=== PATIENT | male | born 1955 | race Caucasian/White ===

== ENCOUNTER 2019-02-19 15:27 | Emergency (ER) | payer OTHER ==
--- OUTSIDE RECORDS SUMMARY | 2019-02-19 15:29 | XMS REPORT | Clinical Summary ---
:1955 Author Organization [facility] Address [address] [facility] [place] [address] Care Team Providers Name Role Phone Aaliyah Primary Care Provider Allergies No Known Allergies Medications Medication Sig Dispensed Refills Start Date End Date Status lisinopril Take 40 mg by mouth 0 Active (PRINIVIL,ZESTRIL) 2 (two) times daily. 40 MG tablet metFORMIN Take 750 mg by mouth 0 Active (GLUCOPHAGE) 500 MG 2 (two) times daily tablet with breakfast and dinner. liraglutide 0.6 Inject 1.2 mg 0 Active mg/0.1 mL (18 mg/3 subcutaneously mL) PnIj daily. canagliflozin Take 300 mg by mouth 0 Active (INVOKANA) 300 mg daily. tablet predniSONE Take 10 mg by mouth 0 Active (DELTASONE) 10 MG 3 (three) times tablet daily. budesonide (UCERIS) Take 9 mg by mouth 0 Active 9 mg TaDE daily. mesalamine (LIALDA) Take 2.4 mg by mouth 0 Active 1.2 gram EC tablet daily with breakfast. Active Problems Problem Noted Date ICH (intracerebral hemorrhage) 09/19/2016 Social History Tobacco Use Types Packs/Day Years Used Date Never Smoker Sex Assigned at Date Recorded Not on file Job Start Date Occupation Industry Not on file Not on file Not on file Travel History Travel Start Travel End No recent travel history available. Last Filed Vital Signs Not on file Plan of Treatment Not on file Results Not on fileafter 02/18/2018 Insurance Payer Benefit Plan / Subscriber ID Type Phone Address Group BLUE CROSS/BLUE BCBS PPO POS EPO xxxxxxxxxxxx PPO [phone] [address] [place] [address] Advance Directives For more information, please contact:[address] [phone] Code Status Date Activated Date Inactivated Comments Full Code 09/19/2016 4:51 AM 09/20/2016 3:21 PM This code status was determined by: Patient
[2019-02-19] MEDS ORDERED: MECLIZINE HCL 12.5 MG TAB ONE (16:03)
[2019-02-19] MEDS ORDERED: DIAZEPAM 10 MG/2 ML INJ SYRINGE ONE (16:15)
[2019-02-19 16:20] LABS: Absolute Lymphocytes (CBC) 1.7 K/uL (0.7-4.9); Absolute Monocytes 0.4 K/uL (0.1-1.3); Absolute Neutrophil 3.7 K/uL (1.8-8.0); Basophils % 0.8 % (0-1.3); Eosinophils % 4.3 % (0-4.4); Hematocrit 47.5 % (39.6-49.0); Lymphocytes % 27.4 % (15.3-44.8); MPV 8.3 fL (7.6-11.3); Monocytes % 7.1 % (3.3-12.3)
--- NOTE | 2019-02-19 16:21 | RAD REPORT ---
EXAM DESCRIPTION: CT - Head Brain Wo Cont - 02/19/2019 4:11 pm CLINICAL HISTORY: Weakness, dizziness, syncope COMPARISON: September 2016. TECHNIQUE: Axial 5 mm thick images of the head were obtained without IV contrast. All CT scans are performed using dose optimization technique as appropriate and may include automated exposure control or mA/KV adjustment according to patient size. FINDINGS: No intracranial hemorrhage, mass, edema or shift of mid-line structures. No acute cortical based infarction. No cortical edema or sulcal effacement seen. Atrophy and chronic ischemic changes are present. Ventricles are borderline for being out of proportion given the amount of volume loss. V entricular pattern is similar to the examination of September 2016 Mastoid air cells and visualized portions of the paranasal sinuses are clear. No acute bony findings. IMPRESSION: No hemorrhage, mass or other acute intracranial finding identifiable. No suspicious change from the 2016 study. Ventricles are borderline as being out of proportion to the amount of volume loss. Although the patte rn is stable, correlation can be made with any findings of normal pressure hydrocephalus.
--- NOTE | 2019-02-19 17:36 | ER ---
Nurse's Notes [facility] Name: Curt Read Jr Age: 63 yrs Sex: Male : 1955 Arrival Date: 02/19/2019 Time: 15:30 Bed 27 Private MD: Robert Pastrana Diagnosis: Vertigo Presentation: 02/19 15:33 Presenting complaint: Patient states: He was dizzy when he got up and then it resolved aj1 so he went to work, he got up to get some water and started feeling dizzy again and could not stand up, he was told he needed to go see his doctor so he called Dr. Pastrana's office and they advised him to come to the emergency room. Denies any weakness, denies trouble speaking. States "Its just my balance. This happened a year ago but it went away" Denies pain, denies SOB. Transition of care: patient was not received from another setting of care. Onset of symptoms was February 19, 2019 at 04:00. Risk Assessment: Do you want to hurt yourself or someone else? Patient reports no desire to harm self or others. Initial Sepsis Screen: Does the patient meet any 2 criteria? Yes Does the patient have a suspected source of infection? No. Patient's initial sepsis screen is negative. Care prior to arrival: None. 15:33 Method Of Arrival: Wheelchair aj1 15:33 Acuity: ASHLEY 3 aj1 16:13 No acute neurological deficit is noted. Pre-hospital glucose is not applicable to this ca1 patient. Triage Assessment: 15:37 The onset of the patients symptoms was more than six hours ago. The onset of the aj1 patients symptoms was February 19, 2019 at 04:00. General: Appears in no apparent distress. comfortable, Behavior is calm, cooperative, appropriate for age. Pain: Denies pain. Neuro: Level of Consciousness is awake, alert, obeys commands, Oriented to person, place, Moves all extremities. Full function Speech is normal, Facial symmetry appears normal, Reports dizziness. Cardiovascular: Patient's skin is warm and dry. Respiratory: Airway is patent Respiratory effort is even, unlabored, Respiratory pattern is regular, symmetrical. Stroke Activation: Physician: Stroke Attending; Name: ; Notified At: ; Arrived At: Physician: Chief Stroke Resident; Name: ; Notified At: ; Arrived At: Physician: Stroke Resident; Name: ; Notified At: ; Arrived At: Physician: ED Attending; Name: ; Notified At: ; Arrived At: Physician: ED Resident; Name: ; Notified At: ; Arrived At: 16:13 N/A ca1 Historical: - Allergies: 15:37 No Known Allergies; aj1 - PMHx: 15:37 Diabetes - NIDDM; hypercholesterol; Hypertension; ulcerative colitis; aj1 - Immunization history:: Flu vaccine is up to date. - Social history:: Smoking status: Patient/guardian denies using tobacco. - Ebola Screening: : Patient denies travel to an Ebola-affected area in the 21 days before illness onset. Screenin:50 Abuse screen: Denies threats or abuse. Denies injuries from another. Nutritional ca1 screening: No deficits noted. Tuberculosis screening: No symptoms or risk factors identified. Fall Risk IV access (20 points). Gait- Impaired (20 pts.). Assessment: 15:46 VAN Scoring: Arm Drift: Patients demonstrates NO arm weakness. Patient is VAN Negative. ca1 Visual Disturbance: No visual disturbance noted. Aphasia: No aphasia noted. Neglect: No neglect noted. General: Appears in no apparent distress. comfortable, Behavior is calm, cooperative, appropriate for age. 15:50 Pain: Denies pain. Neuro: Level of Consciousness is awake, alert, obeys commands, ca1 Oriented to person, place, time, situation, Regional Controller are equal bilaterally Moves all extremities. Gait is unsteady, Speech is normal, Facial symmetry appears normal, Reports dizziness, since this morning. Cardiovascular: Heart tones S1 S2 present Capillary refill < 3 seconds Patient's skin is warm and dry. Respiratory: Airway is patent Respiratory effort is even, unlabored, Respiratory pattern is regular, symmetrical, Breath sounds are clear bilaterally. GI: Abdomen is round non-distended, Bowel sounds present X 4 quads. Abd is soft and non tender X 4 quads. : No deficits noted. No signs and/or symptoms were reported regarding the genitourinary system. EENT: No deficits noted. No signs and/or symptoms were reported regarding the EENT system. Derm: Skin is intact, is healthy with good turgor, Skin is pink, warm \\T\\ dry. Musculoskeletal: Circulation, motion, and sensation intact. Capillary refill < 3 seconds, Range of motion: intact in all extremities. 16:02 Patient has been NPO before screening. The patient is alert, and able to follow ca1 commands. The patient does not exhibit slurred or garbled speech. The patient is not exhibiting difficulty speaking. The patient does not exhibit difficulty understanding words. The patient is able to swallow own secretions with no drooling or need for suction. Patient tolerated one teaspoon of water. No drooling, immediate coughing, gurgling, or clearing of the throat was noted. The patient tolerated 90mL of water. No drooling, immediate coughing, gurgling, or clearing of the throat was noted. The patient passed the bedside swallow screening. Oral medications may be given as ordered. Contact Physician for further diet orders. Provider notified of bedside swallow screening results: Manoj MINAYA. 16:44 Reassessment: Patient appears in no apparent distress at this time. Patient is alert, ca1 oriented x 3, equal unlabored respirations, skin warm/dry/pink. Vital Signs: 15:37 BP 148 / 91; Pulse 79; Resp 18; Temp 97.2; Pulse Ox 97% on R/A; Weight 98.88 kg (R); aj1 Height 5 ft. 8 in. (172.72 cm) (R); Pain 0/10; 16:44 BP 148 / 92; Pulse 82; Resp 17 S; Temp 97.5(O); Pulse Ox 99% on R/A; ca1 15:37 Body Mass Index 33.15 (98.88 kg, 172.72 cm) aj1 NIH Stroke Scale Scores: 15:46 NIHSS Score: 0 ca1 ED Course: 15:30 Patient arrived in ED. mr 15:31 Robert Pastrana MD is Private Physician. mr 15:36 Triage completed. aj1 15:37 Arm band placed on Patient placed in an exam room. aj1 15:43 Leonie Contreras RN is Primary Nurse. ca1 15:45 Manoj Trejo PA is PHCP. jr8 15:45 Luis Rodriguez MD is Attending Physician. jr8 15:50 Patient has correct armband on for positive identification. Placed in gown. Bed in low ca1 position. Call light in reach. Side rails up X2. residential monitor on. Pulse ox on. NIBP on. Warm blanket given. 16:04 Initial lab(s) drawn, by me, sent to lab. Inserted saline lock: 20 gauge in right lt1 antecubital area, using aseptic technique. 16:12 CT completed. Patient tolerated procedure well. Patient moved back from CT. ls3 16:12 CT Head Brain wo Cont In Process Unspecified. EDMS 16:12 EKG done, by information systems technician. reviewed by Manoj MINAYA. sm3 17:35 Robert Pastrana MD is Referral Physician. jr8 17:55 No provider procedures requiring assistance completed. IV discontinued, intact, ca1 bleeding controlled, Pressure dressing applied. Administered Medications: 15:50 Drug: Meclizine 25 mg Route: PO; ca1 17:50 Follow up: Response: No adverse reaction; 1755 ca1 16:04 Drug: Valium 2 mg Route: IVP; Site: right antecubital; ca1 17:50 Follow up: Response: No adverse reaction ca1 Point of Care Testing: Blood Glucose: 16:21 Blood Glucose: 169 mg/dL; ca1 Ranges: Intake: Outcome: 17:35 Discharge ordered by . jr8 17:55 Discharged to home via wheelchair, with son ca1 17:55 Condition: stable 17:55 Discharge instructions given to patient, Instructed on discharge instructions, follow up and referral plans. no driving heavy equipment, medication usage, Demonstrated understanding of instructions, follow-up care, medications, Prescriptions given X 2. 18:34 Patient left the ED. ca1 NIH Stroke Scale - NIH Stroke Score Date: 02/19/2019 Time: 15:46 Total Score = 0 1a. Level of Consciousness (LOC) - 0(Alert) 1b. Level of Consciousness (LOC) (Year \\T\\ Age) - 0(Both) 1c. LOC Commands (Open \\T\\ Closes Eyes/Filtration Operator) - 0(Both) 2. Best Gaze (Lateral Gaze Paresis) - 0(Normal) 3. Visual Field Loss - 0(No visual loss) 4. Facial Palsy - 0(Normal) 5a. Left Arm: Motor (10-second hold) - 0(No drift) 5b. Right Arm: Motor (10-second hold) - 0(No drift) 6a. Left Leg: Motor (5-second hold - always test supine) - 0(No drift) 6b. Right Leg: Motor (5-second hold - always test supine) - 0(No drift) 7. Limb Ataxia (finger/nose \\T\\ heel/fernandez - test with eyes open) - 0(Absent) 8. Sensory Loss (pinprick arms/legs/face) - 0(Normal) 9. Best Language: Aphasia (description/naming/reading) - 0(No aphasia) 10. Dysarthria (speech clarity - read or repeat words) - 0(Normal) 11. Extinction and Inattention (visual/tactile/auditory/spatial/personal) - 0(No abnormality) Initials: ca1 Signatures: Dispatcher [employer] EDMS Yumiko Vieira, RN RN aj1 Aby Yousif mr Maya, REI Aranda PA jr8 Arlette Roger sm3 Sheela Ewing ls3 Leonie Contreras RN RN ca1 Juana, Lissette lt1 Corrections: (The following items were deleted from the chart) 16:11 15:46 General: Appears in no apparent distress. comfortable, Behavior is calm, ca1 cooperative, appropriate for age, ca1 16:45 16:44 Reassessment: Patient appears in no apparent distress at this time. ca1 Patient is alert, oriented x 3, equal unlabored respirations, skin warm/dry/pink. Patient states feeling better. ca1
--- NOTE | 2019-02-19 17:36 | EDPHYS ---
Physician Documentation [facility] Name: Curt Read Jr Age: 63 yrs Sex: Male : 1955 Arrival Date: 02/19/2019 Time: 15:30 Bed 27 Private MD: Robert Pastrana ED Physician Luis Rodriguez HPI: 02/19 16:11 This 63 yrs old Male presents to ER via Wheelchair with complaints of Trouble jr8 Walking, Dizziness. 16:11 The patient presents with dizziness. Onset: The symptoms/episode began/occurred jr8 acutely, this morning, today. Context: occurred at home, occurred while the patient was at rest, just prior to the episode the patient experienced no apparent symptoms. Modifying factors: The symptoms are alleviated by holding head still, lying down, the symptoms are aggravated by standing up, changing position. Associated signs and symptoms: Pertinent positives: nausea. Severity of symptoms: At their worst the symptoms were moderate in the emergency department the symptoms have improved mildly. Patient's baseline: Neuro: alert and fully oriented, Motor: no deficits, Ambulation: walks without assistance, Speech: normal. The patient has experienced a previous episode, approximately 1 years ago, and the symptoms today are exactly the same. The patient has not recently seen a physician. Stated that after getting up this morning became dizzy with walking and movement but went away after about 1 hour. Went to work at that time and had been fine for a while until symptoms started again. Now has not resolved. Worse with movement and changing of position. Stated that he feels things are moving around him . Historical: - Allergies: 15:37 No Known Allergies; aj1 - PMHx: 15:37 Diabetes - NIDDM; hypercholesterol; Hypertension; ulcerative colitis; aj1 - Immunization history:: Flu vaccine is up to date. - Social history:: Smoking status: Patient/guardian denies using tobacco. - Ebola Screening: : Patient denies travel to an Ebola-affected area in the 21 days before illness onset. ROS: 16:11 Constitutional: Negative for fever, chills, and weight loss. jr8 16:11 Neuro: Positive for dizziness, gait disturbance, Negative for altered mental status, headache, hearing loss, loss of consciousness, numbness, seizure activity, speech changes, syncope, near syncope, tingling, tinnitus, tremor, visual changes, weakness. Exam: 16:11 Eyes: Pupils equal round and reactive to light, extra-ocular motions intact. Lids and jr8 lashes normal. Conjunctiva and sclera are non-icteric and not injected. Cornea within normal limits. Periorbital areas with no swelling, redness, or edema. ENT: Nares patent. No nasal discharge, no septal abnormalities noted. Tympanic membranes are normal and external auditory canals are clear. Oropharynx with no redness, swelling, or masses, exudates, or evidence of obstruction, uvula midline. Mucous membranes moist. Neck: Trachea midline, no thyromegaly or masses palpated, and no cervical lymphadenopathy. Supple, full range of motion without nuchal rigidity, or vertebral point tenderness. No Meningismus. Cardiovascular: Regular rate and rhythm with a normal S1 and S2. No gallops, murmurs, or rubs. Normal PMI, no JVD. No pulse deficits. Respiratory: Lungs have equal breath sounds bilaterally, clear to auscultation and percussion. No rales, rhonchi or wheezes noted. No increased work of breathing, no retractions or nasal flaring. Abdomen/GI: Soft, non-tender, with normal bowel sounds. No distension or tympany. No guarding or rebound. No evidence of tenderness throughout. Back: No spinal tenderness. No costovertebral tenderness. Full range of motion. Skin: Warm, dry with normal turgor. Normal color with no rashes, no lesions, and no evidence of cellulitis. MS/ Extremity: Pulses equal, no cyanosis. Neurovascular intact. Full, normal range of motion. Neuro: Awake and alert, GCS 15, oriented to person, place, time, and situation. Cranial nerves II-XII grossly intact. Motor strength 5/5 in all extremities. Sensory grossly intact. Cerebellar exam normal. Normal gait. 16:13 ECG was reviewed by the Attending Physician. jr8 Vital Signs: 15:37 BP 148 / 91; Pulse 79; Resp 18; Temp 97.2; Pulse Ox 97% on R/A; Weight 98.88 kg (R); aj1 Height 5 ft. 8 in. (172.72 cm) (R); Pain 0/10; 16:44 BP 148 / 92; Pulse 82; Resp 17 S; Temp 97.5(O); Pulse Ox 99% on R/A; ca1 15:37 Body Mass Index 33.15 (98.88 kg, 172.72 cm) aj1 NIH Stroke Scale Scores: 15:46 NIHSS Score: 0 ca1 MDM: 15:45 Patient medically screened. jr8 17:36 Data reviewed: vital signs, nurses notes, lab test result(s), radiologic studies, CT jr8 scan. Data interpreted: Pulse oximetry: on room air is 99 %. Interpretation: normal. Counseling: I had a detailed discussion with the patient and/or guardian regarding: the historical points, exam findings, and any diagnostic results supporting the discharge/admit diagnosis, lab results, radiology results, the need for outpatient follow up, a family practitioner, to return to the emergency department if symptoms worsen or persist or if there are any questions or concerns that arise at home. Response to treatment: the patient's symptoms have markedly improved after treatment. 02/19 15:46 Order name: CBC with Diff; Complete Time: 16:29 jr8 02/19 15:46 Order name: Basic Metabolic Panel; Complete Time: 16:42 jr8 02/19 15:46 Order name: CT Head Brain wo Cont; Complete Time: 16:29 jr8 02/19 16:22 Order name: Glucose, Ancillary Testing; Complete Time: 16:29 EDMS 02/19 15:46 Order name: IV; Complete Time: 16:05 jr8 02/19 15:46 Order name: EKG - Nurse/Tech; Complete Time: 16:05 jr8 02/19 15:46 Order name: EKG; Complete Time: 15:47 jr8 EC:13 Rate is 79 beats/min. Rhythm is regular, 1st Degree Block. QRS [place] is Normal. [place] jr8 interval is prolonged at 252 msec. QT interval is normal at 403 msec. No Q waves. T waves are Normal. No ST changes noted. Clinical impression: 1st degree heart block. Interpreted by me. Reviewed by me. Administered Medications: 15:50 Drug: Meclizine 25 mg Route: PO; ca1 17:50 Follow up: Response: No adverse reaction; 1755 ca1 16:04 Drug: Valium 2 mg Route: IVP; Site: right antecubital; ca1 17:50 Follow up: Response: No adverse reaction ca1 Point of Care Testing: Blood Glucose: 16:21 Blood Glucose: 169 mg/dL; ca1 Ranges: Critical Glucose Levels:Adult <50 mg/dl or >400 mg/dl <40 mg/dl or >180 mg/dl Disposition: 02/20 07:04 Co-signature as Attending Physician, Luis Rodriguez MD I agree with the assessment and raulito plan of care. Disposition: 02/19/19 17:35 Discharged to Home. Impression: Vertigo. - Condition is Stable. - Discharge Instructions: Benign Positional Vertigo, Vertigo. - Prescriptions for Meclizine 25 mg Oral Tablet - take 1 tablet by ORAL route every 8 hours As needed; 30 tablet. Valium 2 mg Oral Tablet - take 1 tablet by ORAL route every 8 hours As needed; 20 tablet. - Medication Reconciliation Form, Thank You Letter, Antibiotic Education, Prescription Opioid Use, Work release form form. - Follow up: Robert Pastrana MD; When: 2 - 3 days; Reason: Recheck today's complaints, Continuance of care, Re-evaluation by your physician. - Problem is new. - Symptoms have improved. NIH Stroke Scale - NIH Stroke Score Date: 02/19/2019 Time: 15:46 Total Score = 0 1a. Level of Consciousness (LOC) - 0(Alert) 1b. Level of Consciousness (LOC) (Year \T\ Age) - 0(Both) 1c. LOC Commands (Open \T\ Closes Eyes/Net Mobile Developer) - 0(Both) 2. Best Gaze (Lateral Gaze Paresis) - 0(Normal) 3. Visual Field Loss - 0(No visual loss) 4. Facial Palsy - 0(Normal) 5a. Left Arm: Motor (10-second hold) - 0(No drift) 5b. Right Arm: Motor (10-second hold) - 0(No drift) 6a. Left Leg: Motor (5-second hold - always test supine) - 0(No drift) 6b. Right Leg: Motor (5-second hold - always test supine) - 0(No drift) 7. Limb Ataxia (finger/nose \T\ heel/fernandez - test with eyes open) - 0(Absent) 8. Sensory Loss (pinprick arms/legs/face) - 0(Normal) 9. Best Language: Aphasia (description/naming/reading) - 0(No aphasia) 10. Dysarthria (speech clarity - read or repeat words) - 0(Normal) 11. Extinction and Inattention (visual/tactile/auditory/spatial/personal) - 0(No abnormality) Initials: ca1 Signatures: Dispatcher [employer] Yumiko Urbina RN RN aj1 Luis Rodriguez MD MD cha Roszak, Josh, PA PA jr8 Leonie Contreras, RN RN ca1 Corrections: (The following items were deleted from the chart) 02/19 18:34 17:35 02/19/2019 17:35 Discharged to Home. Impression: Vertigo. Condition is ca1 Stable. Forms are Medication Reconciliation Form, Thank You Letter, Antibiotic Education, Prescription Opioid Use. Follow up: Robert Pastrana; When: 2 - 3 days; Reason: Recheck today's complaints, Continuance of care, Re-evaluation by your physician. Problem is new. Symptoms have improved. jr8
--- NOTE | 2019-02-20 07:50 | EKG ---
Test Date: 2019-02-19 Test Time: 15:56:37 Quencher Operator: ARSEN MEASUREMENT RESULTS: Intervals: Rate: 79 MO: 252 QRSD: 90 QT: 352 QTc: 403 [place]: P: 21 MO: 252 QRS: 0 T: 34 INTERPRETIVE STATEMENTS: Sinus rhythm with 1st degree AV block Cannot rule out Anterior infarct, age undetermined Abnormal ECG Compared to ECG 09/18/2016 22:40:17 First degree AV block now present Sinus tachycardia no longer present Ventricular premature complex(es) no longer present Myocardial infarct finding still present Electronically Signed On 02-20-19 07:50:06 CDT by Cornelius Shane
== END 2019-02-19 18:34 | disposition home or self-care (01) ==
LOC: ER 15:27
DX: R42 Dizziness and giddiness (principal); E11.9 Type 2 diabetes mellitus without complications; E78.00 Pure hypercholesterolemia, unspecified; I10 Essential (primary) hypertension
CPT/HCPCS: 93005; 85025; 80048; 36415; 82962; 70450; 96374; 99285; J3360

== ENCOUNTER 2020-09-15 06:25 | Day surgery (SDC) | payer OTHER ==
[2020-09-11 10:09] LABS: Absolute Lymphocytes (CBC) 1.5 K/uL (0.7-4.9); Basophils % 0.5 % (0-1.3); Hematocrit 48.7 % (39.6-49.0); Lymphocytes % 24.3 % (15.3-44.8); MPV 8.8 fL (7.6-11.3); RBC Red Blood Cell Count 5.35 M/uL (4.33-5.43)
--- NOTE | 2020-09-11 10:13 | RAD REPORT ---
EXAM DESCRIPTION: RAD - Chest Pa And Lat (2 Views) - 09/11/2020 9:15 am CLINICAL HISTORY: PRE OPpending circumcision COMPARISON: December 2019 two view exam TECHNIQUE: Frontal and lateral views of the chest were obtained. FINDINGS: The lungs are clear. Interstitial pattern matches comparison. Heart size is normal and ce ntral vasculature is within normal limits. No pleural effusion or pneumothorax seen. No acute bony finding noted. No aortic abnormality. IMPRESSION: No acute cardiopulmonary process. No significant change from comparison study.
[2020-09-11 10:23] LABS: Potassium 4.3 mmol/L (3.5-5.1)
--- NOTE | 2020-09-11 13:37 | EKG ---
Test Date: 2020-09-11 Test Time: 08:54:52 Rod Cup Filler: SEA MEASUREMENT RESULTS: Intervals: Rate: 68 IA: 260 QRSD: 96 QT: 384 QTc: 408 [place]: P: 27 IA: 260 QRS: 2 T: 47 INTERPRETIVE STATEMENTS: Sinus rhythm with 1st degree AV block Otherwise normal ECG Compared to ECG 12/26/2019 12:15:37 No significant changes Electronically Signed On 09-11-20 13:36:53 VIGOUREUX PRINTER by Guillaume Medina
--- OUTSIDE RECORDS SUMMARY | 2020-09-15 06:28 | XMS REPORT | Clinical Summary ---
:1955 Author Organization [facility] Address [address] [place] [address] Care Team Providers Name Role Phone Aaliyah [...] Types Packs/Day Years Used Date Never Smoker Alcohol Use Drinks/Week oz/Week Comments Not Asked Sex Assigned at Date Recorded Not on file Last Filed Vital Signs Not on file Plan of Treatment Not on file Results Not on fileafter 09/15/2019 Insurance Payer Benefit Plan / Subscriber ID Effective Dates Phone Addre ss Type Group BLUE BCBS PPO POS [id number] 2016-Prese [phone] [id number] PPO CROSS/BLUE EPO CHOICE nt 2 [facility] [id number] Advance Directives For more information, please contact: [phone] Code Status Date Activated Date Inactivated Comments Full Code 09/19/2016 4:51 AM 09/20/2016 3:21 PM This code status was determined by: Patient
--- OUTSIDE RECORDS SUMMARY | 2020-09-15 06:28 | XMS REPORT ---
:1955 Author Organization [facility] Address [address] [place] [address] Care Team Providers Name Role Phone Denise Hogan Unavailable [phone] PROBLEMS Type Condition ICD9-CM [id number] Onset Condition SNOMED Code Notes Code Code Dates Status Problem BPH (benign N40.0 Active 385419261 prostatic hyperplasia) ALLERGIES No Known Allergies ENCOUNTERS from 1955 to 2020-07-03 Encounter Location Date Provider Diagnosis [facility] [address] [facility] Jun, Denise Hogan Phimosis N47.1 and Specialty/Urology [address] [facility] ( [place] [address] prostatic hyperplasia) N4 0.0 IMMUNIZATIONS No Information SOCIAL HISTORY Tobacco Use: Social History Observation Description Date Details (start date - stop date) Current Smoker Sex Assigned At : Social History Observation Description Sex Assigned At Unknown Alcohol Screen Question Answer Notes Did you have a drink containing alcohol in the past year? No Points 0 Interpretation Negative Tobacco Use/Smoking Question Answer Notes Additional Findings: Tobacco User Snuff user Are you a current smoker REASON FOR REFERRAL No Information VITAL SIGNS Height 68 in Jun, Weight 214 lbs Jun, Temperature 98.5 degrees Fahrenheit Jun, BMI 32.54 kg/m2 Jun, Oximetry 95 % Jun, Blood pressure systolic 159 mm Hg Jun, Blood pressure diastolic 86 mm Hg Jun, MEDICATIONS Medication SIG (Take, Route, Start Date End Date Status Frequency, Duration) Rosuvastatin Calcium 5 MG 1 capsule Orally Once a Active day Betamethasone Dipropionate 1 application Externally Jun, Jul, Active 0.05 % BID for 10 days Synjardy 5-500 MG 1 tablet with meals Act patti Orally Twice a day Losartan Potassium 50 MG 1 tablet Orally Once a Active day Carvedilol 6.25 MG 1 tablet with food Orally Active Twice a day Apriso 0.375 GM 4 capsules in the morning Active Orally Once a day Glimepiride 4 MG 1 tablet with breakfast Active or the first main meal of the day Orally Once a day PROCEDURES No Information RESULTS No Results REASON FOR VISIT Phimosis MEDICAL (GENERAL) HISTORY Type Description Date Surgical History hand 2014 Hospitalization History 05/18/2020 Goals Section No Information Health Concerns No Information MEDICAL EQUIPMENT No Information MENTAL STATUS No Information FUNCTIONAL STATUS No Information ASSESSMENTS Encounter Date Diagnosis Notes Jun, BPH (benign prostatic hyperplasia) (ICD- 10 - N40.0) Jun, Phimosis (ICD-10 - N47.1) PLAN OF TREATMENT Medication Medication Name Sig Start Date Stop Date Betamethasone Dipropionate 0.05 1 application Externally BID Jun, Jul, % for 10 days Treatment Notes Assessment Notes Clinical Notes Phimosis Trial of Bet dip cre am BID for 10 days to see if helps soften foreskinUrine reflex Schedule surgeryJul, 2020Continue better glucose control Treatment Notes Test Name Order Date URINALYSIS AUTO W/O SCOPE ([id number]) 2020-07-03 UMIC with Reflex to Urine Culture 2020-07-03 PVR 2020-07-03 Next Appt Details 4 Weeks Reason:surgery/post op Follow Up:4 Weekssurgery/post op Insurance Providers Payer Name Payer Address Payer Insured Patient Coverage Cover age Phone Name Relationship to Start Date End Date Insured MEDICARE Attn Part B [id number] [place],Wi self [employer] Claims [address] [place] [address] [employer] [address] [phone] [place]i self [place] [address] [phone]
--- OUTSIDE RECORDS SUMMARY | 2020-09-15 06:28 | XMS REPORT ---
:1955 Author Organization [facility] Address [address] [facility] [address] [place] [address] Care Team Providers Name Role Phone Matthew Enriquez Unavailable [phone] PROBLEMS Type Condition ICD9-CM [id number] Onset Condition SNOMED Code Notes Code Code Dates Status Problem BPH loc w urin N40.1 Active 724769399 obs/LUTS Problem Phimosis N47.1 Active [id number] Problem BPH (benign N40.0 Active 950801441 prostatic hyperplasia) Problem Posthitis N47.7 Active 35876842 ALLERGIES No Known Allergies ENCOUNTERS from 1955 to 2020-08-05 Encounter Location Date [facility] [address] [facility] Jul, Matthew Enriquez Phimosis N47.1 ; Specialty/Urology [address] [place] [address] [address] [address] [place] [address] BPH loc w urin obs/LUTS N40.1 IMMUNIZATIONS No Information SOCIAL HISTORY Tobacco Use: Social History Observation Description Date Details (start date - stop date) Current Smoker Sex Assigned At : Social History Observation Description Sex Assigned At Unknown Alcohol Screen Question Answer Notes Did you have a drink containing alcohol in the past year? No Points 0 Interpretation Negative Tobacco Use/Smoking Question Answer Notes Additional Findings: Tobacco User Chews tobacco Are you a current smoker REASON FOR REFERRAL No Information VITAL SIGNS Height 68 in Jul, Weight 218.2 lbs Jul, Temperature 97.7 degrees Fahrenheit Jul, BMI 33.17 kg/m2 Jul, Blood pressure systolic 167 mm Hg Jul, Blood pressure diastolic 94 mm Hg Jul, MEDICATIONS Medication SIG (Take, Route, Start Date End Date Status Frequency, Duration) Glimepiride 4 MG 1 tablet with breakfast or Active the first main meal of the day Orally Once a day Rosuvastatin Calcium 5 MG 1 capsule Orally Once a Active day Synjardy 5-500 MG 1 tablet with meals Orally Active Twice a day Apriso 0.375 GM 4 capsules in the morning Active Orally Once a day Carvedilol 6.25 MG 1 tablet with food Orally Active Twice a day Clotrimazole-Betamethasone 1 application Externally Jul, Sep, Active 1-0.05 % Twice a day for 42 days Losartan Potassium 50 MG 1 tablet Orally Once a day Active PROCEDURES No Information RESULTS No Results REASON FOR VISIT PHIMOSIS MEDICAL (GENERAL) HISTORY Type Description Date Medical History COLITIS Medical History DIABETES Medical History HYPERTENSION Medical History HIGH CHOLESTEROL Medical History SLEEP DISORDER Surgical History hand 2014 Hospitalization History 05/18/2020 Goals Section No Information Health Concerns No Information MEDICAL EQUIPMENT No Information MENTAL STATUS No Information FUNCTIONAL STATUS No Information ASSESSMENTS Encounter Date Diagnosis Notes Jul, Phimosis (ICD-10 - N47.1) Jul, BPH loc w urin obs/LUTS (ICD-10 - N40.1) Jul, Posthitis (ICD-10 - N47.7) PLAN OF TREATMENT Medication Medication Name Sig Start Date Stop Date Clotrimazole-Betamethasone 1 application Externally Twice JulSep, 1-0.05 % a day for 42 days Treatment Notes Test Name Order Date URINALYSIS AUTO W/O SCOPE ([id number]) 2020-08-05 Next Appt Details Provider Name:Matthew Mina 2020-09-08 07:30:00 AM, [address] [place] [address], [place], [address], Insurance Providers Payer Name Payer Address Payer Insured Patient Coverage Cover age Phone Name Relationship to Start Date End Date Insured [employer] [address] [phone] [place] [address] [phone] MEDICARE Attn Part B [id number] [place] self [employer] Claims [address] [facility] [address]
--- OUTSIDE RECORDS SUMMARY | 2020-09-15 06:28 | XMS REPORT | Continuity of Care Document ---
:1955 Author Organization [facility] t Address [address] [place] [address] 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 Social History Social Habit Start Date Stop Date Quantity Comments Source Sex Assigned At [facility] 2016[facility]09[facility] Smoking Status Start Date Stop Date Source Never smoker [facility] Medications Ordered Filled Start Stop Current Ordering Indication Dosage Frequency Signature Comments Components Source Medication Medication Date Date Medication? Clinician (SIG) Name Name lisinopril 2015-10 Yes 40mg Q.5D Take [address] (PRINIVIL,Z 2-13 by mouth 2 Edith kes - ESTRIL) 40 13:21: (two) Medica l MG tablet 15 times Center daily. metFORMIN 2015-10 Yes 750mg Take [address] [facility] (GLUCOPHAGE 2-13 mg by [facility] ) 500 MG 13:21: mouth 2 Medica l tablet 15 (two) Center times daily with breakfast and dinner. liraglutide 2015-10 Yes 1.2mg QD Inject 1.[address] [facility] 0.6 mg/0.1 2-13 mg [facility] - mL (18 mg/3 13:21: subcutaneo Medical mL) PnIj 15 usly Center daily. canaglifloz 2015-10 Yes 300mg QD Take [address] in 2-13 mg by [facility] - (INVOKANA) 13:21: mouth Medica l 300 mg 15 daily. Center tablet predniSONE 2015-10 Yes 10mg [id number] Take [address] (DELTASONE) 2-13 [id number] by mouth 3 [facility] - 10 MG 13:21: 3D (three) Medical tablet 15 times Center daily. budesonide 2015-10 Yes 9mg QD Take [address] (UCERIS) 9 2-13 by mouth [facility] - mg TaDE 13:21: daily. Medical 15 Center mesalamine 2015-10 Yes 2.4mg Take 2.[address] (LIALDA) 2-13 mg by [facility] - 1.2 gram EC 13:21: mouth Medic al tablet 15 daily with Center breakfast. Procedures This patient has no known procedures. Encounters Start End Encounter Admission Attending Care Care Encounter Source Date/Time Date/Time Type Type Clinicians Facility Department ID 2020-08-05 2020-08-05 Outpatient [facility] [id number] [facility] ent Clinics 2020-08-05 2020-08-05 Outpatient [facility] [id number] [facility] Clin[facility] 2020-07-02 2020-07-02 Outpatient [facility] [id number] [facility]00 [facility] ent [facility] Results This patient has no known results.
--- OUTSIDE RECORDS SUMMARY | 2020-09-15 06:29 | XMS REPORT ---
:1955 Author Organization [facility] Address [address] [place] [address] [address] [place] [address] Care Team Providers Name Role Phone Matthew Enriquez Unavailable [phone] PROBLEMS Type Condition ICD9-CM [id number] Onset Condition SNOMED Code Notes Code Code Dates Status Problem BPH loc w urin N40.1 Active 574031341 obs/LUTS Problem Phimosis N47.1 Active 001930091 Problem BPH (benign N40.0 Active 488429545 prostatic hyperplasia) Problem Posthitis N47.7 Active 40310588 ALLERGIES No Known Allergies ENCOUNTERS from 1955 to 2020-08-05 Encounter [facility] Date [facility] [address] Jul, Matthew Enriquez Specialty/[place] [address] IMMUNIZATIONS No Information SOCIAL HISTORY Tobacco Use: [...] REASON FOR REFERRAL No Information VITAL SIGNS No information MEDICATIONS Medication SIG (Take, Route, Start Date [...] Information RESULTS No Results REASON FOR VISIT No Information MEDICAL (GENERAL) HISTORY Type Description Date Medical History COLITIS Medical History DIABETES Medical History HYPERTENSION Medical History HIGH CHOLESTEROL Medical History SLEEP DISORDER Surgical History hand 2014 Hospitalization History 05/18/2020 Goals Section No Information Health Concerns No Information MEDICAL EQUIPMENT No Information MENTAL STATUS No Information FUNCTIONAL STATUS No Information ASSESSMENTS No Information PLAN OF TREATMENT Medication Medication Name Sig Start Date Stop Date Clotrimazole-Betamethasone 1 application Externally Twice JulSep, 1-0.05 % a day for 42 days Next Appt Details Provider Name:Matthew Enriquez 2020-09-08 07:30:00 AM, [address] [place] [address], [place], [address], Insurance Providers Payer Name Payer Address Payer Insured Patient Coverage Cover age Phone Name Relationship to Start Date End Date Insured [employer] [address] [phone] Yulisa Villegas self [place] [address] [phone] MEDICARE Attn Part B [id number] [place]oro[place] self [employer] Claims [address] [facility] [address]
[2020-09-15] MEDS: NA CHLORIDE 0.9% 1,000 ML ONE (07:00)
[2020-09-15] MEDS ORDERED: CEFAZOLIN/SWI 2gm 2 GM/20 ML SYR ONE (07:06)
[2020-09-15] MEDS ORDERED: propofoL 200 MG/20 ML VIAL IV ONE (07:26)
[2020-09-15] MEDS ORDERED: FENTANYL CITR 100 MCG/2 ML ONE (07:26)
[2020-09-15] MEDS ORDERED: ROCURONIUM 50 MG/5 ML VIAL IV ONE (07:26)
[2020-09-15] MEDS ORDERED: LIDOCAINE 1% MPF 5 ML VIAL ONE (07:26)
[2020-09-15] MEDS ORDERED: BACITRACIN OINTMENT 15 GM TUBE TOP ONE (07:34)
[2020-09-15] MEDS ORDERED: BUPIVACAINE 0.25% PF 10 ML VIAL ONE (07:34)
[2020-09-15] MEDS ORDERED: LIDOCAINE 1% MPF 30 ML VIAL ONE (07:35)
[2020-09-15] MEDS ORDERED: EPHEDRINE SULF 50 MG/ML VIAL ONE (08:14)
[2020-09-15] MEDS ORDERED: NS 0.9% VIAL 10 ML ONE (08:14)
[2020-09-15] MEDS ORDERED: KETOROLAC 30 MG/ML INJ ONE (08:17)
[2020-09-15] MEDS ORDERED: ONDANSETRON 4 MG/2 ML VIAL ONE (08:17)
[2020-09-15] MEDS ORDERED: GLYCOPYRROLATE 0.2 MG/ML SYR ONE (08:27)
--- NOTE | 2020-09-15 10:44 | OP ---
Surgeon: KEVYN GRAY Preoperative Diagnoses: 1.Phimosis. 2.Posthitis. Postoperative Diagnoses: 1.Phimosis. 2.Posthitis. 3.Zoon balanitis of glans. Principal Procedures: 1.Sleeve circumcision. 2.Penile block. Indication For Procedure: Mr. Read presented to the Urology Clinic with recurrent episodes of phi mosis associated with evidence of balanoposthitis. We attempted to treat him with a steroid and anti fungal ointment without significant change. As a result, he elected to proceed with elective circumc ision. Procedure Note: The patient was consented in the preoperative holding area before being transferred to the operative suite where general anesthesia using an LMA was induced. He was given Ancef 2 g IV antimicrobial prophylaxis and pneumo boots were provided for DVT prophylaxis. He was supine on the o perating table, and his prepubic region was shaved and then he was prepped in standard fashion using Betadine. Because of the denseness of the phimosis, Q-tip swabs and Betadine were used to cleanse th e inside component of the foreskin next to the glans. A penile block was then performed using a 50:5 0 mixture of 0.25% Marcaine and 1% lidocaine. A total of approximately 30 mL of the 50:50 mixture wa s given in the infrapubic region and in the region of the neurovascular bundles bilaterally to comple te the penile block. Once this was done, a line was marked using a marking pen at the level of the c kush of the glans and then a dorsal slit was performed by using a straight clamp to crush the dorsal tissue in the anterior midline. This was then divided sharply using cut electrocautery, until I was able to retract the foreskin and expose the glans penis. I then marked the preputial margin that wa s approximately 1 to 1.5 cm in length from the red and circumferentially incised this using a 15-b lade. I then incised the previously marked shaft skin line and divided the intervening skin in the a nterior/dorsal midline before applying snaps to the 4 corners that had now been developed in order to use electrocautery to divide the dartos attachments to the foreskin from the shaft of the penis. On ce the entirety of the foreskin had been excised, it was sent for pathologic analysis. I then perfor med a careful search for bleeding and using Adson forceps, pinpoint fulguration of any and all bleedi ng vessels was performed using electrocautery. Once this was completed, irrigation was applied and a ny further bleeding was then pinpoint fulgurated. When the area was completely hemostatic, I then pe rformed quadrant sutures using 3-0 chromic dipped in bacitracin. Once this was done, the intervening tissue was sewn together using a running horizontal mattress of 3-0 chromic suture. In the end, the cosmetic result was excellent and a Gunnar and a Coban were applied after bacitracin was applied to t he incision line. Once the Coban was applied, bacitracin was applied to the glans penis, and the pat ient was awakened from general anesthesia. He was then transferred to a stretcher and then to the re covery room in good condition. Complications: None. Discharge Disposition: Because of some mild erythema in a circular region on the dorsal glans penis, I suspect underlying Zoon balanitis. As a result, I will recommend he continue to apply the nystati n and triamcinolone ointment once a day to the glans penis and the other time of the day apply Neospo rin/bacitracin. Follow up will be established in the Urology Clinic within the next 1 to 2 weeks. CASH/PUJA Voice ID: [id number] Report ID: [id number]
[2020-09-15 14:41] VITALS: BP 139/82; TEMP 97.4; O2SAT 100
== END 2020-09-15 10:25 | disposition home or self-care (01) ==
LOC: OR 06:25
PROVIDERS: ATTEND Urology
PROC: 0VTTXZZ Resection of Prepuce, External Approach (ICD-10-PCS; principal; 2020-09-15 07:30)
DX: N47.1 Phimosis (principal); N47.7 Other inflammatory diseases of prepuce; E11.9 Type 2 diabetes mellitus without complications; I10 Essential (primary) hypertension; K51.90 Ulcerative colitis, unspecified, without complications; Z20.828 Contact with and (suspected) exposure to other viral communicable diseases; G47.33 Obstructive sleep apnea (adult) (pediatric); Z79.84 Long term (current) use of oral hypoglycemic drugs; Z79.82 Long term (current) use of aspirin; N48.1 Balanitis
CPT/HCPCS: 36415; 71046; 80048; 82947; 85025; 85730; 88304; 93005; J0690; J2405; J2704; J3010; J7030; U0002

== ENCOUNTER 2021-02-06 05:45 | Emergency (ER) | payer OTHER ==
--- OUTSIDE RECORDS SUMMARY | 2021-02-06 05:49 | XMS REPORT | Continuity of Care Document ---
:1955 Author Organization [facility] t Address [address] [place] [address] Care Team Providers Name Role Phone Sharpless Primary Care Physician Only, Test Attending Clinician Unavailable Payers Payer Name Policy Type Policy Number Effective Date Expiration Date S ource Problems Condition Condition Condition Status Onset Resolution Last Treating Co mments Source Name Details Category Date Date Treatment Clinician Date ICH ICH Disease Active 2015-[address] [facility] (intracere (intracere 2-12 Edith kes - bral bral 00:00: Medical hemorrhage hemorrhage 00 Ce nter ) ) Allergies, Adverse Reactions, Alerts Allergy Allergy Status Severity Reaction(s) Onset Inactive Treating Comm ents Source Name Type Date Date Clinician No Known DA Active [facility] 3-30 Clear s 00:00: Wong 00 [facility] No Known DA Active [facility]ie 11-02 [place] [facility] Social History Social Habit Start Date Stop Date Quantity Comments Source Sex Assigned At MARIUSZ [facility] Alcohol intake 2016-09-19 2016-09-[address] [facility] Smoking Status Start Date Stop Date Source Never smoker [facility] Medications Ordered Filled Start Stop Current Ordering Indication Dosage Frequency Signature Comments Components Source Medication Medication Date Date Medication? Clinician (SIG) Name Name annaifloz 2015-10 Yes 300mg QD Take [address] in 2-13 mg by [facility] (INVOKANA) 13:21: mouth Medica l 300 mg 15 daily. Center tablet predniSONE 2015-10 Yes 10mg [id number] Take [address] [facility] (DELTASONE) 2-13 [id number] by mouth 3 [facility] - 10 MG [...] al tablet 15 daily with Center breakfast. lisinopril 2015-10 Yes 40mg Q.5D Take 40 [...] Medical mL) PnIj 15 usly Center daily. Procedures This patient has no known procedures. Encounters Start End Encounter Admission Attending Care Care Encounter Source Date/Time Date/Time Type Type Clinicians Facility Department ID 2021-01-15 2021-01-15 Laboratory Only, [facility] [id number] 15:17:53 15:32:53 Only Test [place] [id number] [facility] [id number] [place] [id number] 2020-10-19 2020-10-19 Outpatient [facility] [id number] [facility] 2020-09-30 2020-09-30 Outpatient [facility] [id number] [facility] 2020-09-21 2020-09-21 Outpatient [facility] [id number] [facility] 2020-08-05 2020-08-05 [facility] [id number] [facility] 2020-08-05 2020-08-05 Outpatient [facility] [id number] [facility] 2020-07-02 2020-07-02 Outpatient [facility] [id number] [facility] Results Test Description Test Time Test Comments Results Result Comments Source GLUBED 2021-01-25 12:17:00 Test Item Value Reference Range Interpretation Comme nts GLUBED (test code = GLUBED) 138 mg/dL 60-125 H [id number] 12:29:00 Test Item Value Reference Range Interpretation Comments GLUBED (test code = GLUBED) 164 mg/dL 60-125 H [id number] 05:22:00 Test Item Value Reference Range Interpretation Comments GLUBED (test code = GLUBED) 133 mg/dL 60-125 H [id number] 21:05:00 Test Item Value Reference Range Interpretation Comments GLUBED (test code = GLUBED) 173 mg/dL 60-125 H [id number] 17:43:00 Test Item Value Reference Range Interpretation Comments GLUBED (test code = GLUBED) 168 mg/dL 60-125 H [id number] 11:42:00 Test Item Value Reference Range Interpretation Comments GLUBED (test code = GLUBED) 290 mg/dL 60-125 H - XR SPINE 1 V SPEC [id number] 08:45:00 [facility] 1955 Sex: M Patient Name: ROHCELLE VILLEGAS JR Unit No: [id number] EXAMS: CPT CODE: [id number] XR SPINE 1 V SPEC LEVEL [id number] 1 LATERAL INTRAOPERATIVE VIEWS OF THE LUMBAR SPINE Image 1: Surgical markers are at the L4-L5 and S3 levels at 0845 Reported and signed by: Lawrence Briggs M.D. CC: Bandar Goetz MD Technologist: JULIEN MAURER (RT.R) Transcribed D/ (0845) LenkaJ [facility] NAME: ROCHELLE VILLEGAS [address] [facility] PHYS: Bandar Marcial : 1955 AGE: 65 SEX: M [place], [place] [address] LOC: Y.523 A PHONE #: [phone] EXAM DATE: 01/21/2021 STATUS: ADM IN FAX #: [phone] RAD #: D/C DT PAGE 1 Signed Report Patient Name: ROCHELLE VILLEGAS JR Unit No: [id number] EXAMS: CPT CODE: [id number] XR SPINE 1 V SPEC LEVEL [id number] <Continued> Orig Print D/T: S: 01/22/2021 (0848) [facility] NAME: ROCHELLE VILLEGAS JR [address] [facility] [address] PHYS: LANG GoetzBandar Renetta Dan : 1955 AGE: 65 SEX: M [place], [place] [address] LOC: Y.523 A PHONE #: [phone] EXAM DATE: 01/21/2021 ATUS: ADM IN FAX #: [phone] RAD #: D/C DT PAGE 2 Signed ReportBASIC METABOLIC PANEL 2021-01-22 06:48:00 Test Item Value Reference Range Interpretation Comments SODIUM (test code = 134 mmol/L 136-145 L NA) POTASSIUM (test code = 4.8 mmol/L 3.5-5.1 N K) CHLORIDE (test code = 98.0 mmol/L 98-107 N CL) CARBON DIOXIDE (test 23.0 mmol/L 21-32 N code = CO2) GLUCOSE (test code = 226 mg/dL 70-110 H GLU) BLOOD UREA NITROGEN 19 mg/dL 7-18 H (test code = BUN) GLOMERULAR FILTRATION 79.1 >60 Unit o f measure: RATE (test code = GFR) mL/mi n/1.73 [id number] Range:Healthy A dults >90 mL/min/1.73 m2 For Chronic Kidney Disease: St age II Mild Dec rease in GFR 6 0-90 Stage III Moderate Decrea se in GFR 30-59 Stage IV Se joaquina Decrease in GFR 15-29 Stage V Kidney Failur e <15 CREATININE (test code 0.95 mg/dL 0.55-1.30 N = CREAT) CALCIUM (test code = 9.1 mg/dL 8.2-10.1 N CA) CBC W/AUTO [id number] 05:50:00 Test Item Value Reference Range Interpretation Comments WHITE BLOOD CELL (test code = 12.8 K/mm3 5.7-10.5 H WBC) RED BLOOD CELL (test code = RBC) 4.77 M/mm3 4.2-5.4 N HEMOGLOBIN (test code = HGB) 14.5 g/dL 12-16 N HEMATOCRIT (test code = HCT) 43.8 % 37-47 N MEAN CELL VOLUME (test code = 92 fL 80-98 N MCV) MEAN CELL HGB (test code = MCH) 30.4 pg 27-34 N MEAN CELL HGB CONCENTRATION (test 33.1 g/dL 30.8-34.1 N code = MCHC) RED CELL DISTRIBUTION WIDTH (test 12.4 % 11-16 N code = RDW) PLT (test code = PLT) 208 K/mm3 130-400 N MEAN PLATELET VOLUME (test code = 10.5 fL 8.9-12.1 N MPV) NEUTROPHIL % (test code = NT%) 88.8 % 45-70 H LYMPHOCYTE % (test code = LY%) 5.9 % 20-40 L MONOCYTE % (test code = MO%) 4.7 % 3-10 N EOSINOPHIL % (test code = EO%) 0.0 % 1-5 L BASOPHIL % (test code = BA%) 0.2 % 0.0-1.1 N NEUTROPHIL # (test code = NT#) 11.34 K/mm3 2.00-7.50 H LYMPHOCYTE # (test code = LY#) 0.75 K/mm3 1.50-4.00 L MONOCYTE # (test code = MO#) 0.60 K/mm3 0.2-0.8 N EOSINOPHIL # (test code = EO#) 0.00 K/mm3 0.04-0.4 L BASOPHIL # (test code = BA#) 0.02 K/mm3 0.02-0.10 N MANUAL DIFF REQUIRED (test code = NO MANUAL DIFF MDIFF) NUCLEATED RED BLOOD CELL (test 0 % 0-0 N code = NRBC) [id number] 05:40:00 Test Item Value Reference Range Interpretation Comments GLUBED (test code = GLUBED) 208 mg/dL 60-125 H [id number] 22:30:00 Test Item Value Reference Range Interpretation Comments GLUBED (test code = GLUBED) 246 mg/dL 60-125 H PROTHROMBIN [id number] 13:12:00 Test Item Value Reference Range Interpretation Comments PROTHROMBIN TIME 11.5 secs 10.1-12.5 N PATIENT (test code = PTP) INTERNATIONAL NORMAL 1.01 <2.0 RECOMME NDED THERAPEUTIC RATIO (test code = RANGE FOR ORAL INR) ANTICOAGULANTTR EATMENT: CONDI TION INRProphylaxis of venous thrombos is in 2.0 - 3.0 high-risk medic al or surgical patientsTreatme nt of venous thrombos is 2.0 - 3.0Prevention o f embolism 2.0 - 3.0Prevention o f recurrent embol ism, or 3.0 - 4. 5 patients with mechanical pros thetic intravascular v hercules IS PATIENT ON ANTICOAGULANTS ? NHas Lab been notified if Patient is on Heparin Drip? NOIf Yes, orderCBC, OCCULT BLOOD, PT every other day NTHROMBOPLASTIN TIME [id number] 13:12:00 Test Item Value Reference Range Interpretation Comments PTT ACTIVATED (test code = APTT) 36.6 secs 24.9-37.0 N IS PATIENT ON ANTICOAGULANTS ? NHas Lab been notified if Patient is on Heparin Drip? NOIf Yes, orderCBC, OCCULT BLOOD, PT every other day NBASIC METABOLIC [id number] 13:11:00 Test Item Value Reference Range Interpretation Comments SODIUM (test code = 135 mmol/L 136-145 L NA) POTASSIUM (test code = 4.7 mmol/L 3.5-5.1 N K) CHLORIDE (test code = 98.0 mmol/L 98-107 N CL) CARBON DIOXIDE (test 30.0 mmol/L 21-32 N code = CO2) GLUCOSE (test code = 215 mg/dL 70-110 H GLU) BLOOD UREA NITROGEN 16 mg/dL 7-18 N (test code = BUN) GLOMERULAR FILTRATION 70.5 >60 Unit o f measure: RATE (test code = GFR) mL/mi n/1.73 [id number] Range:Healthy A dults >90 mL/min/1.73 m2 For Chronic Kidney Disease: St age II Mild Dec rease in GFR 6 0-90 Stage III Moderate Decrea se in GFR 30-59 Stage IV Se joaquina Decrease in GFR 15-29 Stage V Kidney Failur e <15 CREATININE (test code 1.05 mg/dL 0.55-1.30 N = CREAT) CALCIUM (test code = 9.1 mg/dL 8.2-10.1 N CA) CBC W/AUTO [id number] 12:50:00 Test Item Value Reference Range Interpretation Comments WHITE BLOOD CELL (test code = WBC) 7.6 K/mm3 5.7-10.5 N RED BLOOD CELL (test code = RBC) 4.85 M/mm3 4.2-5.4 N HEMOGLOBIN (test code = HGB) 14.8 g/dL 12-16 N HEMATOCRIT (test code = HCT) 44.4 % 37-47 N MEAN CELL VOLUME (test code = MCV) 92 fL 80-98 N MEAN CELL HGB (test code = MCH) 30.5 pg 27-34 N MEAN CELL HGB CONCENTRATION (test 33.3 g/dL 30.8-34.1 N code = MCHC) RED CELL DISTRIBUTION WIDTH (test 12.4 % 11-16 N code = RDW) PLT (test code = PLT) 208 K/mm3 130-400 N MEAN PLATELET VOLUME (test code = 10.6 fL 8.9-12.1 N MPV) NEUTROPHIL % (test code = NT%) 67.1 % 45-70 N LYMPHOCYTE % (test code = LY%) 21.5 % 20-40 N MONOCYTE % (test code = MO%) 7.3 % 3-10 N EOSINOPHIL % (test code = EO%) 2.9 % 1-5 N BASOPHIL % (test code = BA%) 0.8 % 0.0-1.1 N NEUTROPHIL # (test code = NT#) 5.13 K/mm3 2.00-7.50 N LYMPHOCYTE # (test code = LY#) 1.64 K/mm3 1.50-4.00 N MONOCYTE # (test code = MO#) 0.56 K/mm3 0.2-0.8 N EOSINOPHIL # (test code = EO#) 0.22 K/mm3 0.04-0.4 N BASOPHIL # (test code = BA#) 0.06 K/mm3 0.02-0.10 N MANUAL DIFF REQUIRED (test code = NO MANUAL DIFF MDIFF) NUCLEATED RED BLOOD CELL (test 0 % 0-0 N code = NRBC) - XR FLUORO FOR SPINE [id number] 20:49:00 [facility] : 1955 Sex: M Patient Name: ROCHELLE VILLEGAS Unit No: [id number] EXAMS: CPT CODE: [id number] XR FLUORO FOR SPINE INJ [id number] LUMBAR EPIRADICULAR INJECTION REFERRAL PHYSICIAN: None PREOPERATIVE DIAGNOSIS: Lumbar Radiculitis POSTOPERATIVE DIAGNOSIS: L5-S1 grade 2 spondylolisthesis with bilateral L5-S1 foraminal and central stenosis with bilateral lower extremity radicular pain PROCEDURES PERFORMED: Fluoroscopically guided needle localization of the bilateral L5 and bilateral S1 spinal nerves with transforaminal epidurograms and epidural injection of local anesthetic and steroid. FINDINGS: Very tight flow seen through the bilateral L5-S1 foramen and proximally. Flow was also fairly obstructed in the lateral recesses across the L5-S1 grade 2 spondylolisthesis. Provocation with injection was negative. Anesthetic response was positive with the patient noting complete relief of his right low back and lower extremity pain. Preinjection VAS 5/10. Postinjection VAS 0/10. Steroid response pending follow-up. ESTIMATED BLOOD LOSS: Minimal ANES THESIA: TIVA COMPLICATIONS: None DETAILS OF PROCEDURE: After obtaining stable vital signs, informed consent and IV access, with no contraindications, the patient was taken to the operating room and placed in a prone position with all extremities padded and appropriate monitors placed. The patient was sterilely prepped and draped over the lumbosacral spine. Using fluoroscopic visualization the insertion sites were marked for paravertebral approaches and using standard technique, a 25 gauge needle was advanced to the base of each pedicle without paresthesias. Isovue-300 contrast 0.2 mL of was injected incrementallywith frequent negative aspirations to produce each epidurogram. There were no signs of intravascular or intrathecal uptake. Bupivicaine 0.75% 0.25 mL with lidocaine 4% 0.5 mL and Decadron 5 mg was then incrementally injected with frequent negative aspirations and again there were no signs of intravascular or intrathecal uptake. The needles were removed and the patient was taken to the PACU in good condition. Image: Image 1 Image: Image 2 Electronically Signed by Mike Mejia on 0 11/04/2020 at 2048 Reported and signed by: Luis Mejia M.D. [facility] NAME: ROCHELLE VILLEGAS [address] [facility] PHYS: Luis Mercado MD [place] [address] : 1955 AGE: 65 SEX: M LOC: SANDY PHONE #: [phone] EXAM DATE: 11/03/2020 STATUS: [facility] FAX #: [phone] RAD #: D/C DT PAGE 1 Signed Report (CONTINUED) Patient Name: ROCHELLE VILLEGAS JR Unit No: [id number] EXAMS: CPT CODE: [id number] XR FLUORO FOR SPINE INJ [id number] <Continued> CC: Technologist: Amira Zurita(Lien) Transcribed D/ (2048) [facility] NAME: ROCHELLE VILLEGAS [address] [facility] PHYS: Luis Mercado MD [place] [address] : 1955 AGE: 65 SEX: M LOC: SANDY PHONE #:[phone] EXAM DATE: 11/03/2020 STATUS: [facility] FAX #: [phone] RAD #: D/C DT PAGE 2 Signed Report Patient Name: ROCHELLE VILLEGAS JR Unit No: [id number] EXAMS: CPT CODE: [id number] XR FLUORO FOR SPINE INJ [id number] <Continued> Orig Print D/T: S: 11/04/2020 (2051) [facility] NAME: ROCHELLE MAXWELL JR [address] [facility] PHYS: Luis Mercado MD [place] [address] : 1955 AGE: 65 SEX: M LOC: SANDY PHONE #: [phone] EXAM DATE: 11/03/2020 STATUS: [facility] FAX #: [phone] RAD #: D/C DT PAGE 3 Signed [id number] 10:40:00 Test Item Value Reference Range Interpretation Comments GLUBED (test code = GLUBED) 113 mg/dL 60-125 N [id number] 09:11:00 Test Item Value Reference Range Interpretation Comments GLUBED (test code = GLUBED) 132 mg/dL 60-125 H - MRI L-SPINE W/O [id number] 11:34:00 [facility] : 1955 Sex: M Patient Name: ROCHELLE VILLEGAS Unit No: [id number] EXAMS: CPT CODE: [id number] MRI L-SPINE W/O [id number] MRI OF THE LUMBAR SPINE: DIAGNOSIS: 1. At L1-2, moderate disc degeneration. Mild to moderate central canal stenosis. Moderate foraminal stenosis. 2. At L2-3, mild to moderate disc degeneration. 2 motor broad-based disc bulge. Mild to moderate central canal stenosis. Mild to moderate facet arthropathy. Mild to moderate right foraminal moderate to marked left foraminal stenosis. 3. At L3-4, disc desiccation. Mild to moderate central canal stenosis. Moderate bilateral facet arthropathy. Mild bilateral foraminal stenosis. 4. At L4-5, disc desiccation. Moderate central canal stenosis. Mild facet arthropathy. Mild to moderate left foraminal and mild right foramin al stenosis. 5. At L5-S1, marked disc degeneration. Grade 2-3 spondylolisthesis of L5 on S1. 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 There is a moderate central canal stenosis. Moderate bilateral facet arthropathy. Marked bilateral foraminal stenosis. There is a lateralizing approximately 1 cm left foraminal disc herniation which severely impinges left L5 nerve root. There is also a lateralizing 5 mm right foraminal disc herniation impinging the right L5 nerve root. COMMENT: COMPARISON: No prior exams available. Sagittal T1, T2 and STIR and axial T1 and T2-weighted sequences are obtained of the lumbar spine. The lumbar vertebrae are within normal limits in signal. The findings are as above. The conus is in the expected location. at 1134 Reported and signed by: Keyur Sarmiento MD CC: Bandar Goetz MDTechnologist: Yudith Bethea(R) Transcribed D/ (11 34) Salas.GVG [facility] NAME: ROCHELLE VILLEGAS [address] [place] [address] PHYS: Bandar Marcial : 1955 AGE: 65 SEX: M [place] [address]ACCT NO: [id number] LOC: Y.MRI PHONE #: [phone] EXAM DATE: 09/25/2020 STATUS: REG CLI FAX #: [phone] RAD #: D/C DT PAGE 1 Signed Report Patient Name: ROCHELLE VILLEGAS Unit No: [id number] EXAMS: CPT CODE: [id number] MRI L-SPINE W/O CONT [id number] <Continued> Orig Print D/T: S: 09/25/2020 (1137) [facility] NAME: ROCHELLE VILLEGAS [address] [place] [address] PHYS: Bandar Marcial Ni : 1955 AGE: 65 SEX: M [place] [id number] LOC: Y.MRI PHONE #: [phone] EXAM DATE: 09/25/2020 STATUS: REG CLI FAX #: [phone] RAD #: D/C DT PAGE 2 Signed Report
[2021-02-06] MEDS ORDERED: ONDANSETRON 4 MG/2 ML VIAL ONE (06:59)
[2021-02-06] MEDS ORDERED: MORPHINE 4 MG/ML SYR ONE (06:59)
[2021-02-06 07:03] LABS: Absolute Lymphocytes (CBC) 1.2 K/uL (0.7-4.9); Basophils % 0.6 % (0-1.3); Hematocrit 32.4 % (39.6-49.0); Lymphocytes % 23.4 % (15.3-44.8); MPV 7.8 fL (7.6-11.3)
[2021-02-06 07:05] LABS: Protime INR 1.12
[2021-02-06 07:20] LABS: ALT/SGPT 17 U/L (12-78); AST/SGOT 10 U/L (15-37); Albumin 3.1 g/dL (3.4-5.0); Alkaline Phosphatase 99 U/L (45-117); BUN Blood Urea Nitrogen 15 mg/dL (7-18); Bicarbonate 28 mmol/L (21-32); Bilirubin Direct 0.1 mg/dL (0-0.2); Bilirubin Total 0.5 mg/dL (0.2-1.0); Glucose Level 146 mg/dL (74-106); Magnesium 1.9 mg/dL (1.8-2.4); NT PRO-BNP 118 pg/mL (<125); Protein, Total 6.6 g/dL (6.4-8.2); Sodium Level 137 mmol/L (136-145); Troponin (Emerg Dept Use Only) < 0.02 ng/mL (0.0-0.045)
--- NOTE | 2021-02-06 08:46 | ER ---
Nurse's Notes [facility] Name: Curt Read Jr Age: 65 yrs Sex: Male : 1955 Arrival Date: 02/06/2021 Time: 05:48 Bed 14 Private MD: Robert Pastrana Diagnosis: Pain in left leg Presentation: 02/06 06:06 Chief complaint: Patient states: Reports he started having pain in his left leg about ea two days ago reports yesterday when he was moving around he felt ok but last night the pain was unbearable. Pt states he had back surgery two weeks ago. Coronavirus screen: At this time, the client does not indicate any symptoms associated with coronavirus-19. Ebola Screen: No symptoms or risks identified at this time. Initial Sepsis Screen: Does the patient meet any 2 criteria? No. Patient's initial sepsis screen is negative. Does the patient have a suspected source of infection? No. Patient's initial sepsis screen is negative. Risk Assessment: Do you want to hurt yourself or someone else? Patient reports no desire to harm self or others. Onset of symptoms was February 06, 2021. 06:06 Method Of Arrival: Wheelchair ea 06:06 Acuity: ASHLEY 3 ea Historical: - Allergies: 06:09 No Known Allergies; ea - PMHx: 06:09 ulcerative colitis; hypercholesterol; Hypertension; Diabetes - NIDDM; ea - PSHx: 06:09 back surgery; ea - Immunization history:: Adult Immunizations up to date. - Social history:: Smoking status: Patient reports use of chewing tobacco. - Family history:: not pertinent. - Hospitalizations: : No recent hospitalization is reported. Screenin:08 Abuse screen: Denies threats or abuse. Nutritional screening: No deficits noted. ea Tuberculosis screening: No symptoms or risk factors identified. Fall Risk None identified. Assessment: 06:14 General: Appears in no apparent distress. Behavior is calm, cooperative, appropriate ea for age. Pain: Complains of pain in left leg. Neuro: Level of Consciousness is awake, alert, obeys commands, Oriented to person, place, time. Cardiovascular: Patient's skin is warm and dry. Respiratory: Airway is patent Respiratory effort is even, unlabored, Respiratory pattern is regular, symmetrical. Derm: Skin is pink, warm \T\ dry. Vital Signs: 06:06 BP 144 / 82; Pulse 76; Resp 18; Temp 97.6; Pulse Ox 97% ; Weight 97.98 kg; Height 5 ft. ea 8 in. (172.72 cm); 08:08 BP 126 / 81; Pulse 86; Resp 17 S; Pulse Ox 99% on R/A; kg 06:06 Body Mass Index 32.84 (97.98 kg, 172.72 cm) ea ED Course: 05:48 Patient arrived in ED. es 05:49 Robert Pastrana MD is Private Physician. es 06:06 Thi Prather RN is Primary Nurse. ea 06:07 Triage completed. ea 06:08 Denzel Rolle MD is Attending Physician. [facility] 06:08 Arm band placed on right wrist. Patient placed in an exam room, on a stretcher, on ea pulse oximetry. 06:08 Patient has correct armband on for positive identification. Bed in low position. Call ea light in reach. 06:45 Inserted saline lock: 20 gauge in right antecubital area, using aseptic technique. ea Blood collected. 07:02 Attending Physician role handed off by Denzel Rolle MD rn 07:02 Robin Barboza MD is Attending Physician. rn 07:22 XRAY Chest (1 view) In Process Unspecified. EDMS 08:35 Extrem Venous W Compression Khris US In Process Unspecified. EDMS 08:49 No provider procedures requiring assistance completed. IV discontinued, intact, kg bleeding controlled, No redness/swelling at site. Pressure dressing applied. Administered Medications: 06:59 Drug: morphine 4 mg Route: IVP; Site: right antecubital; ea 08:48 Follow up: Response: No adverse reaction; Pain is unchanged, physician notified kg 07:00 Not Given (Other Intervention Used): Zofran (Ondansetron) 2 mg IVP once; over 2 minutes ea 07:01 CANCELLED (Other Intervention Used): Zofran (Ondansetron) 4 mg PO once ea 07:01 Drug: Zofran (Ondansetron) 4 mg Route: IVP; Site: right antecubital; ea 08:48 Follow up: Response: No adverse reaction kg Outcome: 08:45 Discharge ordered by . rn 08:50 Discharged to home kg 08:50 Discharged to home ambulatory, with family. 08:50 Condition: good 08:50 Discharge instructions given to patient, family, Instructed on discharge instructions, follow up and referral plans. Demonstrated understanding of instructions, follow-up care. 09:10 Patient left the ED. kg Signatures: Dispatcher [employer] Camryn Rubio Roman, MD MD rn Antunez, Elena, RN RN ea Holmes, Maurice, MD MD [facility] Talita Alberts kg
--- NOTE | 2021-02-06 08:46 | EDPHYS ---
Physician Documentation [facility] Name: Curt Read Jr Age: 65 yrs Sex: Male : 1955 Arrival Date: 02/06/2021 Time: 05:48 Bed 14 Private MD: Robert Pastrana ED Physician Robin Barboza HPI: 02/06 07:50 This 65 yrs old Male presents to ER via Wheelchair with complaints of rn Possible blood clot in leg. 07:50 The patient presents with pain. The complaints affect the left leg. Onset: The rn symptoms/episode began/occurred yesterday. Modifying factors: The symptoms are alleviated by nothing. the symptoms are aggravated by nothing. Associated signs and symptoms: Pertinent positives: swelling, Pertinent negatives fever, weakness. Severity of symptoms: At their worst the symptoms were moderate, in the emergency department the symptoms have improved. The patient has not experienced similar symptoms in the past. Reports back surgery 2 weeks ago, began with left leg pain yesterday, no trauma, was walking around [place] gun show. Seen by back surgeon last week, told could stop using compression stockings. No fever. No rash. + mild swelling both legs. No hx of dvt/PE.. Historical: - Allergies: 06:09 No Known Allergies; ea - PMHx: 06:09 ulcerative colitis; hypercholesterol; Hypertension; Diabetes - NIDDM; ea - PSHx: 06:09 back surgery; ea - Immunization history:: Adult Immunizations up to date. - Social history:: Smoking status: Patient reports use of chewing tobacco. - Family history:: not pertinent. - Hospitalizations: : No recent hospitalization is reported. ROS: 07:51 Constitutional: Negative for fever, chills, and weight loss, Eyes: Negative for injury, rn pain, redness, and discharge, Neck: Negative for injury, pain, and swelling, Cardiovascular: Negative for chest pain, palpitations, and edema, Respiratory: Negative for shortness of breath, cough, wheezing, and pleuritic chest pain, Abdomen/GI: Negative for abdominal pain, nausea, vomiting, diarrhea, and constipation, MS/Extremity: + LLE pain and swelling Skin: Negative for injury, rash, and discoloration, Neuro: Negative for headache, weakness, numbness, tingling, and seizure. Exam: 07:51 Constitutional: This is a well developed, well nourished patient who is awake, alert, rn and in no acute distress. Head/Face: Normocephalic, atraumatic. Cardiovascular: Regular rate and rhythm. No pulse deficits. Respiratory: No increased work of breathing, no retractions or nasal flaring. Abdomen/GI: Soft, non-tender Skin: Warm, dry, no rashes MS/ Extremity: Pulses equal, no cyanosis. Neurovascular intact. Full, normal range of motion. Equal circumference. 1+ edema bilateral legs. Neuro: Awake and alert, GCS 15 Vital Signs: 06:06 BP 144 / 82; Pulse 76; Resp 18; Temp 97.6; Pulse Ox 97% ; Weight 97.98 kg; Height 5 ft. ea 8 in. (172.72 cm); 08:08 BP 126 / 81; Pulse 86; Resp 17 S; Pulse Ox 99% on R/A; kg 06:06 Body Mass Index 32.84 (97.98 kg, 172.72 cm) ea MDM: 07:02 Patient medically screened. rn 08:44 Differential diagnosis: DVT, radiculopathy, neuropathy, arthritis. Data reviewed: vital rn signs, nurses notes, lab test result(s), radiologic studies, ultrasound, and as a result, I will discharge patient. Counseling: I had a detailed discussion with the patient and/or guardian regarding: the historical points, exam findings, and any diagnostic results supporting the discharge/admit diagnosis, lab results, radiology results, the need for outpatient follow up, to return to the emergency department if symptoms worsen or persist or if there are any questions or concerns that arise at home. Response to treatment: the patient's symptoms have mildly improved after treatment, and as a result, I will discharge patient. Special discussion: I discussed with the patient/guardian in detail that at this point there is no indication for admission to the hospital. It is understood, however, that if the symptoms persist or worsen the patient needs to return immediately for re-evaluation. ED course: DVT study neg, bloodwork without acute abnormality. Vitals normal. Will dc home with elevation and anti-inflammatories along with f/u with back surgeon.. 02/06 06:39 Order name: Basic Metabolic Panel 02/06 06:39 Order name: CBC with Diff; Complete Time: 08: ea 02/06 06:39 Order name: LFT's; Complete Time: 08:01 ea 02/06 06:39 Order name: Magnesium; Complete Time: 08:01 ea 02/06 06:39 Order name: NT PRO-BNP; Complete Time: 08:01 ea 02/06 06:39 Order name: PT-INR; Complete Time: 08:01 ea 02/06 06:39 Order name: Troponin (emerg Dept Use Only); Complete Time: 08:01 ea 02/06 06:39 Order name: XRAY Chest (1 view) ea 02/06 06:39 Order name: Basic Metabolic Panel; Complete Time: 08:01 EDMS 02/06 07:18 Order name: Extrem Venous W Compression Khris US rn 02/06 06:39 Order name: EKG; Complete Time: 06:39 ea 02/06 06:39 Order name: Cardiac monitoring; Complete Time: 07:02 ea 02/06 06:39 Order name: EKG - Nurse/Tech; Complete Time: 07:02 ea 02/06 06:39 Order name: IV Saline Lock; Complete Time: 07:02 ea 02/06 06:39 Order name: Labs collected and sent; Complete Time: 07:02 ea 02/06 06:39 Order name: O2 Per Protocol; Complete Time: 07:02 ea 02/06 06:39 Order name: O2 Sat Monitoring; Complete Time: 07:02 ea Administered Medications: 06:59 Drug: morphine 4 mg Route: IVP; Site: right antecubital; ea 08:48 Follow up: Response: No adverse reaction; Pain is unchanged, physician notified kg 07:00 Not Given (Other Intervention Used): Zofran (Ondansetron) 2 mg IVP once; over 2 minutes ea 07:01 CANCELLED (Other Intervention Used): Zofran (Ondansetron) 4 mg PO once ea 07:01 Drug: Zofran (Ondansetron) 4 mg Route: IVP; Site: right antecubital; ea 08:48 Follow up: Response: No adverse reaction kg Disposition: 02/06/21 08:45 Discharged to Home. Impression: Pain in left leg. - Condition is Stable. - Discharge Instructions: Musculoskeletal Pain, Pain Without a Known Cause. - Medication Reconciliation Form, Thank You Letter, Antibiotic Education, Prescription Opioid Use form. - Follow up: Private Physician; When: As needed; Reason: Recheck today's complaints, Re-evaluation by your physician. - Problem is new. - Symptoms have improved. Signatures: Dispatcher [employer] Robin Collins MD MD rn Antunez, Elena, RN RN ea Graham, Kristen kg Corrections: (The following items were deleted from the chart) 07:01 07:01 Zofran (Ondansetron) 4 mg PO once ordered. paul miller 09:10 08:45 02/06/2021 08:45 Discharged to Home. Impression: Pain in left leg. Condition is kg Stable. Forms are Medication Reconciliation Form, Thank You Letter, Antibiotic Education, Prescription Opioid Use. Follow up: Private Physician; When: As needed; Reason: Recheck today's complaints, Re-evaluation by your physician. Problem is new. Symptoms have improved. rn
--- NOTE | 2021-02-06 09:13 | RAD REPORT ---
EXAM DESCRIPTION: RAD - Chest Single View - 02/06/2021 7:22 am CLINICAL HISTORY: SOB COMPARISON: Two view chest September 2020 TECHNIQUE: AP portable chest image was obtained 02/06/2021 7:22 am . FINDINGS: No acute lung parenchymal process. Interstitial pattern matches the comparison study. Hear t size is upper normal not substantially different from comparison. No acute vascular engorgement. No measurable pleural effusion and no pneumothorax. No acute bony abnormality seen. No acute aortic fin dings suspected. IMPRESSION: No acute cardiopulmonary process. No significant change from comparison study.
[2021-02-06 09:16] VITALS: TEMP 97.6
[2021-02-06 09:17] VITALS: BP 126/81; O2SAT 99
--- NOTE | 2021-02-06 09:19 | RAD REPORT ---
EXAM DESCRIPTION: US - Extrem Venous W Compress Khris - 02/06/2021 8:35 am CLINICAL HISTORY: Pain;Swelling COMPARISON: None. TECHNIQUE: Real-time sonographic evaluation of the bilateral lower extremity common femoral, superfi cial femoral, popliteal and posterior tibial veins was performed. FINDINGS: Normal compressibility, flow augmentation, phasic flow and spontaneous flow are identified in the left and right lower extremity common femoral, superficial femoral, popliteal and posterior t ibial veins. No intraluminal filling defects seen. IMPRESSION: No DVT in either lower extremity.
--- NOTE | 2021-02-08 09:23 | EKG ---
Test Date: 2021-02-06 Test Time: 06:54:22 Desktop Administrator: DANNI MEASUREMENT RESULTS: Intervals: Rate: 66 TX: 226 QRSD: 64 QT: 382 QTc: 400 [place]: P: TX: 226 QRS: -12 T: 4 INTERPRETIVE STATEMENTS: Sinus rhythm with 1st degree AV block Inferior infarct, age undetermined Anterior infarct, age undetermined Abnormal ECG Compared to ECG 09/11/2020 08:54:52 Myocardial infarct finding now present Electronically Signed On 02-08-21 09:17:42 CDT by Guillaume Medina
== END 2021-02-06 09:10 | disposition home or self-care (01) ==
LOC: ER 05:45
DX: M79.605 Pain in left leg (principal); I10 Essential (primary) hypertension; F17.220 Nicotine dependence, chewing tobacco, uncomplicated
CPT/HCPCS: 93005; 85025; 80048; 36415; 83735; 85610; 80076; 84484; 83880; 71045; 93970; 96375; 96374; 99284; J2405